=== PATIENT | male | born 1950 | race Caucasian/White ===

== ENCOUNTER 2017-05-27 08:17 | Observation (INO) | payer BC, MEDICARE ==
[2017-05-27] VITALS (21 sets, daily range): BP systolic 105–150; BP diastolic 55–81
[~2017-05-27] VITALS: Ht 182.9 cm; Wt 99.9 kg
[~2017-05-27 08:17] MED LIST: ATOR10TA60 PO; CHOL200074 PO; EZET1TAB41 PO; IBUP-1060 PO; MULT-245 PO; OLME20TA19 PO; OMEG1CAP6 PO; VALS160T3 PO; VENL150C PO; VENL75TA PO
[2017-05-27] MEDS ORDERED: dilTIAZem IV PUSH 25 MG/5 ML VIAL ONE (08:43)
[2017-05-27] MEDS ORDERED: dilTIAZem IV PUSH 25 MG/5 ML VIAL IVP ONE (08:45)
[2017-05-27 08:55] LABS: BASO # 0.1 x10^3/uL (0.0-0.2); BASO % 1 % (0-3); EOS % 2 % (0-3); HEMATOCRIT 42.6 % (39.0-53.0); LYMPH # 2.3 x10^3/uL (1.0-4.8); LYMPH % 47 % (24-48); MEAN CORPUSCULAR HEMOGLOBIN 30 pg (25-35); MEAN CORPUSCULAR HGB CONC 35 g/dL (31-37); MEAN CORPUSCULAR VOLUME 85 fL (79-100); MONO % 11 % (0-9); NEUT % 39 % (31-73); PLATELET COUNT 189 x10^3/uL (140-400); RED BLOOD COUNT 5.04 x10^6/uL (4.30-5.70); RED CELL DISTRIBUTION WIDTH 13.1 % (11.5-14.5)
--- NOTE | 2017-05-27 09:05 | RAD ---
Indication hypertension. Cardiac arrhythmia. A single view of the chest was obtained. No prior imaging is available. Heart size is at the upper limits of normal. There is no congestive heart failure. No focal infiltrate is seen. There is no significant pleural fluid and there is no pneumothorax. Postoperative changes about the left shoulder are noted. IMPRESSION: No acute or focal process is seen in the chest
[2017-05-27 09:11] LABS: CALCIUM 9.1 mg/dL (8.5-10.1); CREATININE 1.3 mg/dL (0.7-1.3); GFR 55.4; POTASSIUM 4.1 mmol/L (3.5-5.1)
[2017-05-27 09:24] LABS: ALBUMIN 4.2 g/dL (3.4-5.0); DIRECT BILIRUBIN 0.1 mg/dL (0.0-0.2); TOTAL BILIRUBIN 0.4 mg/dL (0.2-1.0); TOTAL PROTEIN 8.1 g/dL (6.4-8.2)
--- NOTE | 2017-05-27 09:25 | PHYS DOC ---
Past Medical History Past Medical History: Anxiety, Depression, High Cholesterol, Hypertension Alcohol Use: Heavy Additional Information: beer daily Drug Use: None Adult General Chief Complaint Chief Complaint: RAPID HEART RATE HPI HPI 67-year-old male presenting to the emergency department with high blood pressure and feeling palpitations at home since 7:00 this morning. He has associated lightheadedness and dizziness. He does not have a history of A. fib. He is found to be in atrial fibrillation with a rapid ventricular response here. Location heart. Duration constant. No alleviating or exacerbating factors present. He denies any pain. He denies chest pain abdominal pain. He reports having obstructive sleep apnea and has been using his machine which is nasal CPAP at home. He does report there is an air leak on his CPAP machine at home and he is currently getting investigated. Review of systems is negative for fevers chills cough nausea vomiting diaphoresis chest pain. All other review of systems is negative unless otherwise noted in history of present illness. ED course: 67-year-old male presenting to the emergency department with A. fib with RVR with having symptoms of lightheadedness. The patient was given diltiazem push IV bolus and drip. Labs obtained. Pertinent physical exam findings otherwise soft nontender abdomen. Patient comfortable in the examination room. EKG interpreted by myself shows A. fib with RVR. Chest x-ray obtained as well. Blood work unremarkable. Patient's heart rate improved with IV therapy. The patient was then admitted to our hospital for further evaluation workup and care. Review of Systems Review of Systems SEE ABOVE. Current Medications Current Medications Current Medications Medications (Trade) Dose Ordered Sig/[facility] Start Time Stop Time Status Last Admin Dose Admin Diltiazem HCl (Cardizem) 25 mg STK-MED ONCE 05/27/17 08:43 05/27/17 08:44 DC Diltiazem HCl 125 mg/Dextrose 125 ml @ 10 mls/hr 1X ONCE 05/27/17 08:45 05/27/17 21:14 05/27/17 09:20 10 MLS/HR Morphine Sulfate 2 mg PRN Q2HR PRN 05/27/17 09:45 05/28/17 09:44 UNV Ondansetron HCl (Zofran) 4 mg PRN Q8HRS PRN 05/27/17 09:45 05/28/17 09:44 UNV Allergies Allergies Allergies Coded Allergies Type Severity Reaction Last Updated Verified No Known Drug Allergies 02/02/16 No Physical Exam Physical Exam Constitutional: Well developed, well nourished, no acute distress, non-toxic appearance. [] HENT: Normocephalic, atraumatic, bilateral external ears normal, oropharynx moist, no oral exudates, nose normal. [] Eyes: PERRLA, EOMI, conjunctiva normal, no discharge. [] Neck: Normal range of motion, no tenderness, supple, no stridor. [] Cardiovascular:tachycardic with irregular rhythm Lungs & Thorax: Bilateral breath sounds clear to auscultation [] Abdomen: Bowel sounds normal, soft, no tenderness, no masses, no pulsatile masses. [] Skin: Warm, dry, no erythema, no rash. [] Back: No tenderness, no CVA tenderness. [] Extremities: No tenderness, no cyanosis, no clubbing, ROM intact, no edema. [] Neurologic: Alert and oriented X 3, normal motor function, normal sensory function, no focal deficits noted. [] Psychologic: Affect normal, judgement normal, mood normal. [] Current Patient Data Vital Signs Vital Signs Date Time Temp Pulse Resp B/P (MAP) Pulse Ox O2 Delivery O2 Flow Rate FiO2 05/27/17 08:46 147 135/93 05/27/17 08:29 97.9 18 99 Room Air 97.9 Lab Values Laboratory Tests Test 05/27/17 08:40 White Blood Count 5.0 x10^3/uL (4.0-11.0) Red Blood Count 5.04 x10^6/uL (4.30-5.70) Hemoglobin 15.0 g/dL (13.0-17.5) Hematocrit 42.6 % (39.0-53.0) Mean Corpuscular Volume 85 fL (79-100) Mean Corpuscular Hemoglobin 30 pg (25-35) Mean Corpuscular Hemoglobin Concent 35 g/dL (31-37) Red Cell Distribution Width 13.1 % (11.5-14.5) Platelet Count 189 x10^3/uL (140-400) Neutrophils (%) (Auto) 39 % (31-73) Lymphocytes (%) (Auto) 47 % (24-48) Monocytes (%) (Auto) 11 % (0-9) H Eosinophils (%) (Auto) 2 % (0-3) Basophils (%) (Auto) 1 % (0-3) Neutrophils # (Auto) 1.9 x10^3uL (1.8-7.7) Lymphocytes # (Auto) 2.3 x10^3/uL (1.0-4.8) Monocytes # (Auto) 0.5 x10^3/uL (0.0-1.1) Eosinophils # (Auto) 0.1 x10^3/uL (0.0-0.7) Basophils # (Auto) 0.1 x10^3/uL (0.0-0.2) Sodium Level 141 mmol/L (136-145) Potassium Level 4.1 mmol/L (3.5-5.1) Chloride Level 104 mmol/L (98-107) Carbon Dioxide Level 30 mmol/L (21-32) Anion Gap 7 (6-14) Blood Urea Nitrogen 17 mg/dL (8-26) Creatinine 1.3 mg/dL (0.7-1.3) Estimated GFR (Cockcroft-Gault) 55.4 Glucose Level 110 mg/dL (70-99) H Calcium Level 9.1 mg/dL (8.5-10.1) Total Bilirubin 0.4 mg/dL (0.2-1.0) Direct Bilirubin 0.1 mg/dL (0.0-0.2) Aspartate Amino Transferase (AST) 25 U/L (15-37) Alanine Aminotransferase (ALT) 33 U/L (16-63) Alkaline Phosphatase 87 U/L (46-116) Troponin I Quantitative < 0.017 ng/mL (0.000-0.055) AA-Ien-C-Type Natriuretic Peptide 13 pg/mL (0-124) Total Protein 8.1 g/dL (6.4-8.2) Albumin 4.2 g/dL (3.4-5.0) Lipase 146 U/L (73-393) Laboratory Tests 05/27/17 08:40 Laboratory Tests 05/27/17 08:40 EKG EKG [] Radiology/Procedures Radiology/Procedures [] Course & Med Decision Making Course & Med Decision Making Pertinent Labs and Imaging studies reviewed. (See chart for details) [] Dragon Disclaimer Dragon Disclaimer This electronic medical record was generated, in whole or in part, using a voice recognition dictation system. Departure Departure Impression: Primary Impression: Atrial fibrillation with RVR Additional Impression: History of hypertension Disposition: ADMITTED INPATIENT Admitting Physician: Briseyda More Condition: STABLE Referrals: VENECIA WILKINSON (PCP) Critical Care Time Critical care time was [42] minutes exclusive of procedures. Time was spent evaluating the patient, ordering the administration of IV heart rate controlling medications, discussing with admitting provider, and documenting. Problem Qualifiers JACLYN DOLL MD May 27, 2017 09:25
[2017-05-27] MEDS ORDERED: IV NORMAL SALINE 1000ML BAG 1,000 ML IV SCH (09:35)
[2017-05-27] MEDS ORDERED: ONDANSETRON PF 4 MG/2 ML VIAL. IV PRN ×2 (09:45→14:00)
[2017-05-27] MEDS ORDERED: MORPHINE SULFATE 2 MG/ML DISP.SYRIN. IV PRN ×2 (09:45→14:00)
--- NOTE | 2017-05-27 10:22 | EKG ---
[facility] [address] [place] [address] Test Date: 2017-05-27 Test Time: 08:29:17 Pat Name: DEE DEE REINOSO Department: Room: Gender: M [employer]: : 1950 Requested By: JACLYN DOLL Order Number: [id number] Reading MD: Measurements Intervals [place] Rate: 146 P: CO: QRS: 32 QRSD: 78 T: -20 QT: 328 QTc: 513 Interpretive Statements IRREGULAR RHYTHM, NO P-WAVE FOUND ST & T ABNORMALITY, CONSIDER INFERIOR ISCHEMIA OR LEFT VENTRICULAR STRAIN ABNORMAL ECG RI6.01 No previous ECG available for comparison
--- NOTE | 2017-05-27 10:53 | ACF ---
Admission Forms Criteria I am unable to edit this form. This patient was placed as observation status. This is the only avenue in our electronic medical record for me to document this. All of the above information is not my professional medical opinion. Admission Criteria Met?: Pending MERCEDEZ DOMINGUEZ May 27, 2017 10:53 JACLYN DOLL MD Jun 03, 2017 03:51
--- NOTE | 2017-05-27 11:35 | PDOC2 ---
CARDIOLOGY CONSULT NOTE CHEIF COMPLAINT: Palpitations. Problems: HPI: Pleasant 67 y.o man presenting with palpitations, anxiety and dyspnea. Was in his usual state of health until yesterday, had palpitations today. Presented to ER in afib with RVR. Denies any baseline chest pain. He is able to mow his yard and do exertional activities without limitations. Recalls one episode of palpitaitons for a few min last week. No syncope. PMHX: HTN Dyslipidemia anxiety SOCHX: No illicit drugs, daily alcohol (2-3 beers). No smoking. FAMHX: NC CURRENT MEDS: Current Medications Medications (Trade) Dose Ordered Sig/Jeannette Start Time Stop Time Status Last Admin Dose Admin Diltiazem HCl (Cardizem) 25 mg STK-MED ONCE 05/27/17 08:43 05/27/17 08:44 DC Diltiazem HCl 125 mg/Dextrose 125 ml @ 10 mls/hr 1X ONCE 05/27/17 08:45 05/27/17 21:14 05/27/17 09:20 10 MLS/HR Morphine Sulfate 2 mg PRN Q2HR PRN 05/27/17 09:45 05/28/17 09:44 Ondansetron HCl (Zofran) 4 mg PRN Q8HRS PRN 05/27/17 09:45 05/28/17 09:44 Sodium Chloride 1,000 ml @ 100 mls/hr Q10H 05/27/17 09:35 05/28/17 09:34 ALLERGIES: Allergies Coded Allergies Type Severity Reaction Last Updated Verified No Known Drug Allergies 02/02/16 No ROS: Negative for 09/06 systems reviewed unless otherwise noted above in HPI. PHYSICAL EXAM: Vital Signs: Vital Signs Date Time Temp Pulse Resp B/P (MAP) Pulse Ox O2 Delivery O2 Flow Rate FiO2 05/27/17 10:29 122 20 127/83 (98) 97 Room Air 05/27/17 08:29 97.9 97.9 Physical Exam: Gen: AO x 3. NAD CVS: Irr irr. No m/r/g. PULM: cTAB ABD: Soft, NT/ND +BS EXT: No edema. 2+ radial/pedal pulses. NEURO:Non focal PSYCH: Mood/affect wnl. DIAGNOSTIC TESTING: EKG: afib with RVR. Lab cbc, bmp wnl. ASSESSMENT: 1. New onset afib with RVR 2. HTN 3. LUCILLE 4. DLP PLAN: 1. Continue current dilt gtt. Will likely convert to oral in am. 2. Digoxin 0.5mg IV now and then 0.25mg q 6 hrs x 2 doses. 3. Eliquis 5mg p.o bid to start now. 4. Plan for ALMA DELIA CVN tomorrow. Discussed pathophysiology, risks, benefits and alternatives to above plan. Patient and in agreement to proceed. Thanks for consult. Will follow along. ROMEO ROSALES MD May 27, 2017 11:35
[2017-05-27] MEDS: APIXABAN 5 MG TABLET. PO SCH ×2 (12:46→21:41)
[2017-05-27] MEDS ORDERED: VENL75CA6 PO (12:54)
[2017-05-27] MEDS ORDERED: CHOL10003 PO (12:56)
[2017-05-27] MEDS ORDERED: OMEG1CAP6 PO (12:57)
[2017-05-27] MEDS ORDERED: DIGOXIN IV 500 MCG/2 ML AMPUL. IV ONE ×2 (13:00→19:00)
[2017-05-27] MEDS ORDERED: traMADol 50 MG TABLET PO PRN (14:00)
[2017-05-27] MEDS ORDERED: DOCUSATE SODIUM 100 MG CAPSULE. PO PRN (14:00)
[2017-05-27] MEDS ORDERED: ACETAMINOPHEN 325 MG TABLET. PO PRN (14:00)
[2017-05-27] MEDS ORDERED: hydrALAZINE 20 MG/ML VIAL. IVP PRN (14:00)
--- NOTE | 2017-05-27 14:06 | PDOC1 ---
History and Physical Date of Admission Date of Admission 05/27/17 Identification/Chief Complaint Chief Complaint palpitation Problems: Source Source: Chart review, Patient History of Present Illness History of Present Illness HPI HPI 67-year-old male presenting to the emergency department with high blood pressure and feeling palpitations at home since 7:00 this morning. pT SAID HE HAD similar episode 1 week ago. He felt irregular heart beat today, palpitation, with some lightheadedness. denies cough, sob, chest pain, abd pain, fever, chills. HE LIKEs coffee and 2 cups daily. He also drinks about 1 L beers almost daily. in ER HR 140s, on cardizem drip now, still HR 110-140s. He reports having obstructive sleep apnea and has been using his machine which is nasal CPAP at home. He does report there is an air leak on his CPAP machine at home and he is currently getting investigated. Past Medical History Cardiovascular: HTN Psych: Depression Past Surgical History Past Surgical History: Tonsillectomy Family History Family History: Cancer, Hypertension Social History Smoke: No ALCOHOL: heavy Drugs: None Current Problem List Problem List Problems Medical Problems: (1) Atrial fibrillation with RVR Status: Acute (2) History of hypertension Status: Acute Current Medications Current Medications Current Medications Medications (Trade) Dose Ordered Sig/Jeannette Start Time Stop Time Status Last Admin Dose Admin Apixaban (Eliquis) 5 mg BID 05/27/17 13:00 05/27/17 12:46 5 MG Digoxin (Lanoxin) 250 mcg 1X ONCE 05/27/17 19:00 05/27/17 19:01 Diltiazem HCl (Cardizem) 25 mg STK-MED ONCE 05/27/17 08:43 05/27/17 08:44 DC Diltiazem HCl 125 mg/Dextrose 125 ml @ 10 mls/hr 1X ONCE 05/27/17 08:45 05/27/17 21:14 05/27/17 09:20 10 MLS/HR Morphine Sulfate 2 mg PRN Q2HR PRN 05/27/17 09:45 05/28/17 09:44 Ondansetron HCl (Zofran) 4 mg PRN Q8HRS PRN 05/27/17 09:45 05/28/17 09:44 Sodium Chloride 1,000 ml @ 100 mls/hr Q10H 05/27/17 09:35 05/27/17 12:22 DC Allergies Allergies Allergies Coded Allergies Type Severity Reaction Last Updated Verified fentanyl Allergy Severe 05/27/17 Yes ROS Review of System CONSTITUTIONAL: No fever or chills EYES: No recent changes SKIN: No rash or itching CARDIOVASCULAR: No chest pain, syncope, palpitations, or edema RESPIRATORY: No SOB or cough GASTROINTESTINAL: No nausea, vomiting or abdominal pain NEUROLOGICAL: No headaches or weakness ENDOCRINE: No cold or heat intolerance GENITOURINARY: No urgency or frequency of urination MUSCULOSKELETAL: No back pain or joint pain LYMPHATICS: No enlarged lymph nodes PSYCHIATRIC: No anxiety or depression Physical Exam Physical Exam GEN.: No apparent distress. Alert and oriented. HEENT: Head is normocephalic, atraumatic NECK: Supple. LUNGS: Clear to auscultation. HEART: S1, S2 present. Peripheral pulses intact , irregular, tachycardia ABDOMEN: Soft, nontender. Positive bowel sounds. EXTREMITIES: Without any cyanosis. NEUROLOGIC: Normal speech, normal tone PSYCHIATRIC: Normal affect, normal mood. SKIN: No ulcerations Vitals Vitals Vital Signs Date Time Temp Pulse Resp B/P (MAP) Pulse Ox O2 Delivery O2 Flow Rate FiO2 05/27/17 13:16 98.1 87 18 130/71 (90) 95 Room Air 98.1 Labs Labs Laboratory Tests Test 05/27/17 08:40 White Blood Count 5.0 x10^3/uL (4.0-11.0) Red Blood Count 5.04 x10^6/uL (4.30-5.70) Hemoglobin 15.0 g/dL (13.0-17.5) Hematocrit 42.6 % (39.0-53.0) Mean Corpuscular Volume 85 fL (79-100) Mean Corpuscular Hemoglobin 30 pg (25-35) Mean Corpuscular Hemoglobin Concent 35 g/dL (31-37) Red Cell Distribution Width 13.1 % (11.5-14.5) Platelet Count 189 x10^3/uL (140-400) Neutrophils (%) (Auto) 39 % (31-73) Lymphocytes (%) (Auto) 47 % (24-48) Monocytes (%) (Auto) 11 % (0-9) Eosinophils (%) (Auto) 2 % (0-3) Basophils (%) (Auto) 1 % (0-3) Neutrophils # (Auto) 1.9 x10^3uL (1.8-7.7) Lymphocytes # (Auto) 2.3 x10^3/uL (1.0-4.8) Monocytes # (Auto) 0.5 x10^3/uL (0.0-1.1) Eosinophils # (Auto) 0.1 x10^3/uL (0.0-0.7) Basophils # (Auto) 0.1 x10^3/uL (0.0-0.2) Sodium Level 141 mmol/L (136-145) Potassium Level 4.1 mmol/L (3.5-5.1) Chloride Level 104 mmol/L (98-107) Carbon Dioxide Level 30 mmol/L (21-32) Anion Gap 7 (6-14) Blood Urea Nitrogen 17 mg/dL (8-26) Creatinine 1.3 mg/dL (0.7-1.3) Estimated GFR (Cockcroft-Gault) 55.4 Glucose Level 110 mg/dL (70-99) Calcium Level 9.1 mg/dL (8.5-10.1) Total Bilirubin 0.4 mg/dL (0.2-1.0) Direct Bilirubin 0.1 mg/dL (0.0-0.2) Aspartate Amino Transf (AST/SGOT) 25 U/L (15-37) Alanine Aminotransferase (ALT/SGPT) 33 U/L (16-63) Alkaline Phosphatase 87 U/L (46-116) Troponin I Quantitative < 0.017 ng/mL (0.000-0.055) IF-Dap-I-Type Natriuretic Peptide 13 pg/mL (0-124) Total Protein 8.1 g/dL (6.4-8.2) Albumin 4.2 g/dL (3.4-5.0) Lipase 146 U/L (73-393) Laboratory Tests Test 05/27/17 08:40 White Blood Count 5.0 x10^3/uL (4.0-11.0) Red Blood Count 5.04 x10^6/uL (4.30-5.70) Hemoglobin 15.0 g/dL (13.0-17.5) Hematocrit 42.6 % (39.0-53.0) Mean Corpuscular Volume 85 fL (79-100) Mean Corpuscular Hemoglobin 30 pg (25-35) Mean Corpuscular Hemoglobin Concent 35 g/dL (31-37) Red Cell Distribution Width 13.1 % (11.5-14.5) Platelet Count 189 x10^3/uL (140-400) Neutrophils (%) (Auto) 39 % (31-73) Lymphocytes (%) (Auto) 47 % (24-48) Monocytes (%) (Auto) 11 % (0-9) Eosinophils (%) (Auto) 2 % (0-3) Basophils (%) (Auto) 1 % (0-3) Neutrophils # (Auto) 1.9 x10^3uL (1.8-7.7) Lymphocytes # (Auto) 2.3 x10^3/uL (1.0-4.8) Monocytes # (Auto) 0.5 x10^3/uL (0.0-1.1) Eosinophils # (Auto) 0.1 x10^3/uL (0.0-0.7) Basophils # (Auto) 0.1 x10^3/uL (0.0-0.2) Sodium Level 141 mmol/L (136-145) Potassium Level 4.1 mmol/L (3.5-5.1) Chloride Level 104 mmol/L (98-107) Carbon Dioxide Level 30 mmol/L (21-32) Anion Gap 7 (6-14) Blood Urea Nitrogen 17 mg/dL (8-26) Creatinine 1.3 mg/dL (0.7-1.3) Estimated GFR (Cockcroft-Gault) 55.4 Glucose Level 110 mg/dL (70-99) Calcium Level 9.1 mg/dL (8.5-10.1) Total Bilirubin 0.4 mg/dL (0.2-1.0) Direct Bilirubin 0.1 mg/dL (0.0-0.2) Aspartate Amino Transf (AST/SGOT) 25 U/L (15-37) Alanine Aminotransferase (ALT/SGPT) 33 U/L (16-63) Alkaline Phosphatase 87 U/L (46-116) Troponin I Quantitative < 0.017 ng/mL (0.000-0.055) SZ-Hqz-S-Type Natriuretic Peptide 13 pg/mL (0-124) Total Protein 8.1 g/dL (6.4-8.2) Albumin 4.2 g/dL (3.4-5.0) Lipase 146 U/L (73-393) VTE Prophylaxis Ordered VTE Prophylaxis Devices: Yes VTE Pharmacological Prophylaxi: No Assessment/Plan Assessment/Plan new onset rapid AFIB htn hld anxiety depression alcoholism plan: fu with card,EP study? on cardizem drip, dig x1, then q6h x2 check lipid panel, tsh cont home meds start eliquis as per card ativan prn check urine tox admit >2 nights TAMARA WHITEHEAD MD May 27, 2017 14:06
[2017-05-27] MEDS: VENLAFAXINE XR 37.5 MG CAP.ER.24H. PO SCH (14:27)
[2017-05-27] MEDS: LOSARTAN POTASSIUM 50 MG TABLET. PO SCH (14:27)
[2017-05-27] MEDS: CHOLECALCIFEROL (VITAMIN D3) 1,000 UNIT TABLET PO SCH (14:27)
[2017-05-27 16:40] LABS: BARBITURATES NEG (NEG); BENZODIAZEPINES NEG (NEG); CANNABINOIDS NEG (NEG); COCAINE NEG (NEG); METHADONE NEG (NEG); OPIATES NEG (NEG); PHENCYCLIDINE NEG (NEG)
[2017-05-27] MEDS ORDERED: ATORVASTATIN CALCIUM 10 MG TABLET. PO SCH (21:00)
[2017-05-28] VITALS (9 sets, daily range): BP systolic 85–127; BP diastolic 48–83
[2017-05-28 06:01] LABS: BASO # 0.1 x10^3/uL (0.0-0.2); BASO % 1 % (0-3); EOS % 2 % (0-3); HEMATOCRIT 41.8 % (39.0-53.0); HEMOGLOBIN 14.3 g/dL (13.0-17.5); LYMPH # 2.7 x10^3/uL (1.0-4.8); LYMPH % 33 % (24-48); MEAN CORPUSCULAR HEMOGLOBIN 30 pg (25-35); MEAN CORPUSCULAR HGB CONC 34 g/dL (31-37); MEAN CORPUSCULAR VOLUME 87 fL (79-100); MONO % 10 % (0-9); NEUT % 55 % (31-73); PLATELET COUNT 186 x10^3/uL (140-400); RED BLOOD COUNT 4.81 x10^6/uL (4.30-5.70); RED CELL DISTRIBUTION WIDTH 13.1 % (11.5-14.5); WHITE BLOOD COUNT 8.1 x10^3/uL (4.0-11.0)
[2017-05-28 06:26] LABS: CALCIUM 8.9 mg/dL (8.5-10.1); CREATININE 1.4 mg/dL (0.7-1.3); GFR 50.9; POTASSIUM 4.2 mmol/L (3.5-5.1)
[2017-05-28 06:27] LABS: CHOLESTEROL/HDL RATIO 4.8
--- NOTE | 2017-05-28 09:18 | PDOC3 ---
Discharge Summary Visit Information Date of Admission: May 27, 2017 Date of Discharge: May 28, 2017 Final Diagnosis Problems Medical Problems: (1) Atrial fibrillation with RVR Status: Acute (2) History of hypertension Status: Acute Brief Hospital Course Allergies Allergies Coded Allergies Type Severity Reaction Last Updated Verified fentanyl Allergy Severe 05/27/17 Yes Vital Signs Vital Signs Date Time Temp Pulse Resp B/P (MAP) Pulse Ox O2 Delivery O2 Flow Rate FiO2 05/28/17 08:00 58 116/73 (87) 05/28/17 07:00 97.6 20 97 Room Air 97.6 Lab Results Laboratory Tests Test 05/27/17 08:40 05/27/17 15:35 05/27/17 16:00 05/27/17 21:20 White Blood Count 5.0 x10^3/uL (4.0-11.0) Red Blood Count 5.04 x10^6/uL (4.30-5.70) Hemoglobin 15.0 g/dL (13.0-17.5) Hematocrit 42.6 % (39.0-53.0) Mean Corpuscular Volume 85 fL (79-100) Mean Corpuscular Hemoglobin 30 pg (25-35) Mean Corpuscular Hemoglobin Concent 35 g/dL (31-37) Red Cell Distribution Width 13.1 % (11.5-14.5) Platelet Count 189 x10^3/uL (140-400) Neutrophils (%) (Auto) 39 % (31-73) Lymphocytes (%) (Auto) 47 % (24-48) Monocytes (%) (Auto) 11 % (0-9) Eosinophils (%) (Auto) 2 % (0-3) Basophils (%) (Auto) 1 % (0-3) Neutrophils # (Auto) 1.9 x10^3uL (1.8-7.7) Lymphocytes # (Auto) 2.3 x10^3/uL (1.0-4.8) Monocytes # (Auto) 0.5 x10^3/uL (0.0-1.1) Eosinophils # (Auto) 0.1 x10^3/uL (0.0-0.7) Basophils # (Auto) 0.1 x10^3/uL (0.0-0.2) Sodium Level 141 mmol/L (136-145) Potassium Level 4.1 mmol/L (3.5-5.1) Chloride Level 104 mmol/L (98-107) Carbon Dioxide Level 30 mmol/L (21-32) Anion Gap 7 (6-14) Blood Urea Nitrogen 17 mg/dL (8-26) Creatinine 1.3 mg/dL (0.7-1.3) Estimated GFR (Cockcroft-Gault) 55.4 Glucose Level 110 mg/dL (70-99) Calcium Level 9.1 mg/dL (8.5-10.1) Total Bilirubin 0.4 mg/dL (0.2-1.0) Direct Bilirubin 0.1 mg/dL (0.0-0.2) Aspartate Amino Transf (AST/SGOT) 25 U/L (15-37) Alanine Aminotransferase (ALT/SGPT) 33 U/L (16-63) Alkaline Phosphatase 87 U/L (46-116) Troponin I Quantitative < 0.017 ng/mL (0.000-0.055) < 0.017 ng/mL (0.000-0.055) < 0.017 ng/mL (0.000-0.055) FO-Vtl-D-Type Natriuretic Peptide 13 pg/mL (0-124) Total Protein 8.1 g/dL (6.4-8.2) Albumin 4.2 g/dL (3.4-5.0) Lipase 146 U/L (73-393) Urine Opiates Screen Neg (NEG) Urine Methadone Screen Neg (NEG) Urine Barbiturates Neg (NEG) Urine Phencyclidine Screen Neg (NEG) Urine Amphetamine/Methamphetamine Neg (NEG) Urine Benzodiazepines Screen Neg (NEG) Urine Cocaine Screen Neg (NEG) Urine Cannabinoids Screen Neg (NEG) Urine Ethyl Alcohol Neg (NEG) Test 05/28/17 05:15 White Blood Count 8.1 x10^3/uL (4.0-11.0) Red Blood Count 4.81 x10^6/uL (4.30-5.70) Hemoglobin 14.3 g/dL (13.0-17.5) Hematocrit 41.8 % (39.0-53.0) Mean Corpuscular Volume 87 fL (79-100) Mean Corpuscular Hemoglobin 30 pg (25-35) Mean Corpuscular Hemoglobin Concent 34 g/dL (31-37) Red Cell Distribution Width 13.1 % (11.5-14.5) Platelet Count 186 x10^3/uL (140-400) Neutrophils (%) (Auto) 55 % (31-73) Lymphocytes (%) (Auto) 33 % (24-48) Monocytes (%) (Auto) 10 % (0-9) Eosinophils (%) (Auto) 2 % (0-3) Basophils (%) (Auto) 1 % (0-3) Neutrophils # (Auto) 4.4 x10^3uL (1.8-7.7) Lymphocytes # (Auto) 2.7 x10^3/uL (1.0-4.8) Monocytes # (Auto) 0.8 x10^3/uL (0.0-1.1) Eosinophils # (Auto) 0.2 x10^3/uL (0.0-0.7) Basophils # (Auto) 0.1 x10^3/uL (0.0-0.2) Sodium Level 140 mmol/L (136-145) Potassium Level 4.2 mmol/L (3.5-5.1) Chloride Level 105 mmol/L (98-107) Carbon Dioxide Level 28 mmol/L (21-32) Anion Gap 7 (6-14) Blood Urea Nitrogen 20 mg/dL (8-26) Creatinine 1.4 mg/dL (0.7-1.3) Estimated GFR (Cockcroft-Gault) 50.9 Glucose Level 117 mg/dL (70-99) Calcium Level 8.9 mg/dL (8.5-10.1) Triglycerides Level 241 mg/dL (0-150) Cholesterol Level 190 mg/dL (0-200) LDL Cholesterol, Calculated 102 mg/dL (0-100) VLDL Cholesterol, Calculated 48 mg/dL (0-40) Non-HDL Cholesterol Calculated 150 mg/dL (0-129) HDL Cholesterol 40 mg/dL (40-60) Cholesterol/HDL Ratio 4.8 Thyroid Stimulating Hormone (TSH) 3.123 uIU/mL (0.358-3.74) Laboratory Tests Test 05/27/17 15:35 05/27/17 16:00 05/27/17 21:20 05/28/17 05:15 Troponin I Quantitative < 0.017 ng/mL (0.000-0.055) < 0.017 ng/mL (0.000-0.055) Urine Opiates Screen Neg (NEG) Urine Methadone Screen Neg (NEG) Urine Barbiturates Neg (NEG) Urine Phencyclidine Screen Neg (NEG) Urine Amphetamine/Methamphetamine Neg (NEG) Urine Benzodiazepines Screen Neg (NEG) Urine Cocaine Screen Neg (NEG) Urine Cannabinoids Screen Neg (NEG) Urine Ethyl Alcohol Neg (NEG) White Blood Count 8.1 x10^3/uL (4.0-11.0) Red Blood Count 4.81 x10^6/uL (4.30-5.70) Hemoglobin 14.3 g/dL (13.0-17.5) Hematocrit 41.8 % (39.0-53.0) Mean Corpuscular Volume 87 fL (79-100) Mean Corpuscular Hemoglobin 30 pg (25-35) Mean Corpuscular Hemoglobin Concent 34 g/dL (31-37) Red Cell Distribution Width 13.1 % (11.5-14.5) Platelet Count 186 x10^3/uL (140-400) Neutrophils (%) (Auto) 55 % (31-73) Lymphocytes (%) (Auto) 33 % (24-48) Monocytes (%) (Auto) 10 % (0-9) Eosinophils (%) (Auto) 2 % (0-3) Basophils (%) (Auto) 1 % (0-3) Neutrophils # (Auto) 4.4 x10^3uL (1.8-7.7) Lymphocytes # (Auto) 2.7 x10^3/uL (1.0-4.8) Monocytes # (Auto) 0.8 x10^3/uL (0.0-1.1) Eosinophils # (Auto) 0.2 x10^3/uL (0.0-0.7) Basophils # (Auto) 0.1 x10^3/uL (0.0-0.2) Sodium Level 140 mmol/L (136-145) Potassium Level 4.2 mmol/L (3.5-5.1) Chloride Level 105 mmol/L (98-107) Carbon Dioxide Level 28 mmol/L (21-32) Anion Gap 7 (6-14) Blood Urea Nitrogen 20 mg/dL (8-26) Creatinine 1.4 mg/dL (0.7-1.3) Estimated GFR (Cockcroft-Gault) 50.9 Glucose Level 117 mg/dL (70-99) Calcium Level 8.9 mg/dL (8.5-10.1) Triglycerides Level 241 mg/dL (0-150) Cholesterol Level 190 mg/dL (0-200) LDL Cholesterol, Calculated 102 mg/dL (0-100) VLDL Cholesterol, Calculated 48 mg/dL (0-40) Non-HDL Cholesterol Calculated 150 mg/dL (0-129) HDL Cholesterol 40 mg/dL (40-60) Cholesterol/HDL Ratio 4.8 Thyroid Stimulating Hormone (TSH) 3.123 uIU/mL (0.358-3.74) Brief Hospital Course Mr. Scott is a 67 old [sex] who presented with [ ]67-year-old male presenting to the emergency department with high blood pressure and feeling palpitations at home since 7:00 this morning. pT SAID HE HAD similar episode 1 week ago. He felt irregular heart beat today, palpitation, with some lightheadedness. denies cough, sob, chest pain, abd pain, fever, chills. HE LIKEs coffee and 2 cups daily. He also drinks about 1 L beers almost daily. in ER HR 140s, on cardizem drip now, still HR 110-140s. He reports having obstructive sleep apnea and has been using his machine which is nasal CPAP at home. He does report there is an air leak on his CPAP machine at home and he is currently getting investigated. COURSE: Started on cardizem gtt, converted to NSR overnight, Was initially planned for ALMA DELIA and cardioversion if remained atrial fib, First episode, Awaiting cardiac rounds for PO cardizem/rate controlling agent, LIkely home later, Dw pt and Pt seen and examined Discharge Information Condition at Discharge: Improved, Stable Disposition/Orders: D/C to Home Scheduled Atorvastatin Calcium (Atorvastatin Calcium), 10 MG PO HS, (Reported) Cholecalciferol (Vitamin D3) (Vitamin D3), 1 TAB PO DAILY, (Reported) Multivitamin (Multi Vitamin Daily), 1 EACH PO DAILY, (Reported) Valsartan (Diovan), 160 MG PO DAILY, (Reported) Venlafaxine Hcl (Venlafaxine Hcl Er), 1 CAP PO DAILY, (Reported) Miscellaneous Medications [place]-3 Fatty Acids/Fish Oil (Fish Oil 1,000 Mg Capsule), 4 EACH PO, (Reported) MAURILIO GRACIA MD May 28, 2017 09:18
--- NOTE | 2017-05-28 09:28 | PDOC ---
CARDIO Progress Notes Date and Time Date of Service 05/28/17 Time of Evaluation 0915 Subjective Subjective: No Chest Pain, No shortness of breath, No Palpitations, No Dizziness Vitals Vitals Vital Signs Date Time Temp Pulse Resp B/P (MAP) Pulse Ox O2 Delivery O2 Flow Rate FiO2 05/28/17 08:00 58 116/73 (87) 05/28/17 07:00 97.6 20 97 Room Air 97.6 Weight Weight [ ] Input and Output Intake and Output Intake and Output 05/28/17 07:00 Intake Total 800 ml Balance 800 ml Intake Oral 800 ml # Voids 6 Laboratory Labs Laboratory Tests Test 05/27/17 15:35 05/27/17 16:00 05/27/17 21:20 05/28/17 05:15 Troponin I Quantitative < 0.017 ng/mL (0.000-0.055) < 0.017 ng/mL (0.000-0.055) Urine Opiates Screen Neg (NEG) Urine Methadone Screen Neg (NEG) Urine Barbiturates Neg (NEG) Urine Phencyclidine Screen Neg (NEG) Urine Amphetamine/Methamphetamine Neg (NEG) Urine Benzodiazepines Screen Neg (NEG) Urine Cocaine Screen Neg (NEG) Urine Cannabinoids Screen Neg (NEG) Urine Ethyl Alcohol Neg (NEG) White Blood Count 8.1 x10^3/uL (4.0-11.0) Red Blood Count 4.81 x10^6/uL (4.30-5.70) Hemoglobin 14.3 g/dL (13.0-17.5) Hematocrit 41.8 % (39.0-53.0) Mean Corpuscular Volume 87 fL (79-100) Mean Corpuscular Hemoglobin 30 pg (25-35) Mean Corpuscular Hemoglobin Concent 34 g/dL (31-37) Red Cell Distribution Width 13.1 % (11.5-14.5) Platelet Count 186 x10^3/uL (140-400) Neutrophils (%) (Auto) 55 % (31-73) Lymphocytes (%) (Auto) 33 % (24-48) Monocytes (%) (Auto) 10 % (0-9) Eosinophils (%) (Auto) 2 % (0-3) Basophils (%) (Auto) 1 % (0-3) Neutrophils # (Auto) 4.4 x10^3uL (1.8-7.7) Lymphocytes # (Auto) 2.7 x10^3/uL (1.0-4.8) Monocytes # (Auto) 0.8 x10^3/uL (0.0-1.1) Eosinophils # (Auto) 0.2 x10^3/uL (0.0-0.7) Basophils # (Auto) 0.1 x10^3/uL (0.0-0.2) Sodium Level 140 mmol/L (136-145) Potassium Level 4.2 mmol/L (3.5-5.1) Chloride Level 105 mmol/L (98-107) Carbon Dioxide Level 28 mmol/L (21-32) Anion Gap 7 (6-14) Blood Urea Nitrogen 20 mg/dL (8-26) Creatinine 1.4 mg/dL (0.7-1.3) Estimated GFR (Cockcroft-Gault) 50.9 Glucose Level 117 mg/dL (70-99) Calcium Level 8.9 mg/dL (8.5-10.1) Triglycerides Level 241 mg/dL (0-150) Cholesterol Level 190 mg/dL (0-200) LDL Cholesterol, Calculated 102 mg/dL (0-100) VLDL Cholesterol, Calculated 48 mg/dL (0-40) Non-HDL Cholesterol Calculated 150 mg/dL (0-129) HDL Cholesterol 40 mg/dL (40-60) Cholesterol/HDL Ratio 4.8 Thyroid Stimulating Hormone (TSH) 3.123 uIU/mL (0.358-3.74) Physical Exam HEENT: Neck Supple W Full Motion Chest: Symmetric LUNGS: Clear to Auscultation Heart: S1S2, RRR Abdomen: Soft N/T Extremities: 2+ Dorsalis Pedis, No Edema Neurology: alert, oriented, follow commands Assessment Assessment 1. New onset AFIB with RVR; converted to SR overnight 2. HTN 3. DLP Recommendations Eliquis for stroked prophylaxis Check echo to assess LV function Convert Cardizem to oral If echo WNL, may discharge from a CV standpoint and f/u in our office in 4-[address] Reinoso. TOMASA BARNES APRN May 28, 2017 09:28
[2017-05-28] MEDS: APIXABAN 5 MG TABLET. PO SCH (12:23)
[2017-05-28] MEDS: VENLAFAXINE XR 37.5 MG CAP.ER.24H. PO SCH (12:23)
[2017-05-28] MEDS: LOSARTAN POTASSIUM 50 MG TABLET. PO SCH (12:23)
[2017-05-28] MEDS: CHOLECALCIFEROL (VITAMIN D3) 1,000 UNIT TABLET PO SCH (12:24)
--- NOTE | 2017-05-28 13:52 | CARD ---
APPROVED REPORT EXAM: Two-dimensional and M-mode echocardiogram with Doppler and color Doppler. Other Information Quality : GoodHR: 61bpm Rhythm : NSR INDICATION Atrial Fibrillation RVR 2D DIMENSIONS RVDd3.4 (2.9-3.5cm)Left Atrium(2D)4.4 (1.6-4.0cm) IVSd1.2 (0.7-1.1cm)LVDd5.2 (3.9-5.9cm) LVOT Diameter2.4 (1.8-2.4cm)PWd1.2 (0.7-1.1cm) LVDs2.9 (2.5-4.0cm)FS (%) 44.3 % SV96.5 ml Aortic Valve AoV Peak Jerome.216.3cm/sAoV VTI40.4cm AO Peak GR.18.7mmHgLVOT Peak Jerome.173.6cm/s LVOT VTI 33.32cmAO Mean GR.9mmHg DAVE (VMAX)2.53yo8YLN (VTI)3.60cm2 Mitral Valve MV E Ttmvagru47.2cm/sMV E Peak Gr.5mmHg MV DECEL [id number] A Sfsgpeja479.1cm/s MV FWT74kiS/A Ratio0.7 MV A Hmojnokz986lmWSE (PHT)2.65cm2 TDI E/Lateral E'6.3E/Medial E'10.0 Pulmonary Valve PV Peak Domxqapn044.4cm/sPV Peak Grad.5mmHg Tricuspid Valve TR P. Gukhpjuc844gn/sTR Peak Gr.24mmHg Pulmonary Vein PVa tzmiyuhw86yhsa LEFT VENTRICLE The left ventricle is normal size. There is mild concentric left ventricular hypertrophy. The left ve ntricular systolic function is normal and the ejection fraction is within normal range. The Ejection Fraction is 60-65%. There is normal LV segmental wall motion. Transmitral Doppler flow pattern is Gra de I-abnormal relaxation pattern. RIGHT VENTRICLE The right ventricle is normal size. There is normal right ventricular wall thickness. The right ventr icular systolic function is normal. ATRIA The left atrium size is normal. The right atrium size is normal. The interatrial septum is intact wit h no evidence for an atrial septal defect or patent foramen ovale as noted on 2-D or Doppler imaging. AORTIC VALVE The aortic valve is mildly sclerotic. The aortic valve is trileaflet. Doppler and Color Flow revealed no significant aortic regurgitation. There is no significant aortic valvular stenosis. MITRAL VALVE The mitral valve leaflets are mildly thickened. There is no evidence of mitral valve prolapse. There is no mitral valve stenosis. Doppler and Color Flow revealed trace mitral regurgitation. TRICUSPID VALVE Doppler and Color Flow revealed mild tricuspid regurgitation. The pulmonary artery systolic pressure is estimated at 27 mmHg. PULMONIC VALVE The pulmonary valve is not well visualized but appears to opens well. Doppler and Color Flow revealed no pulmonic valvular regurgitation. There is no pulmonic valvular stenosis by spectral Doppler. GREAT VESSELS The aortic root is mildly enlarged. The ascending aorta is mildly dilated. The pulmonary artery is no rmal. The IVC is normal in size and collapses >50% with inspiration. PERICARDIAL EFFUSION There is no evidence of significant pericardial effusion. Critical Notification Critical Value: No <Conclusion> The left ventricle is normal size. The left ventricular systolic function is normal and the ejection fraction is within normal range. The Ejection Fraction is 60-65%. There is mild concentric left ventricular hypertrophy. There is no significant aortic valvular stenosis. Doppler and Color Flow revealed no significant aortic regurgitation. Doppler and Color Flow revealed trace mitral regurgitation. Doppler and Color Flow revealed mild tricuspid regurgitation. The pulmonary artery systolic pressure is estimated at 27 mmHg.
== END 2017-05-28 15:45 | disposition home or self-care (01) ==
LOC: ER 08:17 → 2 SOUTH 09:32
PROVIDERS: ADMIT Internal Medicine; ATTEND Internal Medicine
DX: I48.91 Unspecified atrial fibrillation (principal); E78.00 Pure hypercholesterolemia, unspecified; E78.5 Hyperlipidemia, unspecified; F10.20 Alcohol dependence, uncomplicated; F32.9 Major depressive disorder, single episode, unspecified; F41.9 Anxiety disorder, unspecified; G47.33 Obstructive sleep apnea (adult) (pediatric); I10 Essential (primary) hypertension; Z82.49 Family history of ischemic heart disease and other diseases of the circulatory system; R42 Dizziness and giddiness
CPT/HCPCS: 36415; 71010; 80048; 80061; 80076; 83690; 83880; 84443; 84484; 85027; 93005; 93306; 96365; 96366; 96375; 96376; 99285; G0378; G0481; J1160; J3490; G0379

== ENCOUNTER → 2018-05-19 | Outpatient (CLI) | payer BC ==
[2018-05-19 07:57] LABS: ALK PHOS 82 U/L (46-116); ALT (SGPT) 27 U/L (16-63); ANION GAP 6 (6-14); AST (SGOT) 20 U/L (15-37); BLOOD UREA NITROGEN 22 mg/dL (8-26); BUN/CREATININE RATIO 16 (6-20); CALCIUM 9.2 mg/dL (8.5-10.1); CARBON DIOXIDE 29 mmol/L (21-32); CHLORIDE 103 mmol/L (98-107); CHOLESTEROL 159 mg/dL (0-200); CREATININE 1.4 mg/dL (0.7-1.3); GFR 50.7; GLUCOSE 104 mg/dL (70-99); HDLC 38 mg/dL (40-60); LDLC 92 mg/dL (0-100); NON-HDL CHOLESTEROL 121 mg/dL (0-129); POTASSIUM 4.1 mmol/L (3.5-5.1); SODIUM 138 mmol/L (136-145); TOTAL BILIRUBIN 0.5 mg/dL (0.2-1.0); TOTAL PROTEIN 7.9 g/dL (6.4-8.2); TRIGLYCERIDES 145 mg/dL (0-150); VLDLC 29 mg/dL (0-40)
[2018-05-19 08:00] LABS: CHOLESTEROL/HDL RATIO 4.2
== END | disposition home or self-care (01) ==
LOC: LAB 07:20
DX: I48.0 Paroxysmal atrial fibrillation (principal)
CPT/HCPCS: 36415; 80053; 80061

== ENCOUNTER → 2018-06-10 | Outpatient (CLI) | payer BC ==
[2018-06-10 07:28] LABS: ANION GAP 9 (6-14); BLOOD UREA NITROGEN 18 mg/dL (8-26); CALCIUM 8.7 mg/dL (8.5-10.1); CARBON DIOXIDE 28 mmol/L (21-32); CHLORIDE 103 mmol/L (98-107); CREATININE 1.3 mg/dL (0.7-1.3); GFR 55.2; GLUCOSE 93 mg/dL (70-99); POTASSIUM 4.4 mmol/L (3.5-5.1); SODIUM 140 mmol/L (136-145)
== END | disposition home or self-care (01) ==
LOC: LAB 07:07
DX: Z51.81 Encounter for therapeutic drug level monitoring (principal); I10 Essential (primary) hypertension; E78.5 Hyperlipidemia, unspecified; E78.00 Pure hypercholesterolemia, unspecified; Z87.891 Personal history of nicotine dependence
CPT/HCPCS: 36415; 80048

== ENCOUNTER → 2018-10-08 | Outpatient (CLI) | payer BC ==
[2017-05-28 14:50] VITALS: BP 120/75
[~2018-10-08] MED LIST changes: +CHOL10003 PO; +OLME20TA17 PO; -OLME20TA19 PO; +VENL75CA6 PO
[2018-10-08 07:33] LABS: HEMATOCRIT 40.2 % (39.0-53.0)
[2018-10-08 07:35] LABS: BILIRUBIN,URINE NEGATIVE (NEG); CLARITY,URINE CLEAR; COLOR,URINE YELLOW; NITRITE,URINE NEGATIVE (NEG); PH,URINE 5.5; PROTEIN,URINE NEGATIVE (NEG-TRACE); UROBILINOGEN,URINE 0.2 mg/dL (0.2 mg/dL)
[2018-10-08 07:50] LABS: ALBUMIN 3.9 g/dL (3.4-5.0); CALCIUM 9.5 mg/dL (8.5-10.1); CREATININE 1.4 mg/dL (0.7-1.3); GFR 50.7; PHOSPHORUS 3.3 mg/dL (2.6-4.7); POTASSIUM 4.6 mmol/L (3.5-5.1)
[2018-10-08 07:56] LABS: BACTERIA,URINE 0 /HPF (0-FEW); RBC,URINE 0 /HPF (0-2); SQUAMOUS EPITHELIAL CELL,UR FEW /LPF; WBC,URINE 0 /HPF (0-4)
[2018-10-08 12:18] LABS: CREAT RD UR 73.1 mg/dL (Not Estab.); MICRO CREAT RATIO 27.2 mg/g creat (0.0-30.0); MICROALB RD UR 19.9 ug/mL (Not Estab.); UR PROTEIN RD 8.3 mg/dL (Not Estab.)
[2018-10-08 15:32] LABS: CALCIUM PTH 9.4 mg/dL (8.6-10.2); CREATININE PTH 1.32 mg/dL (0.76-1.27); PHOSPHORUS PTH 3.2 mg/dL (2.5-4.5); PTH INTACT 35 pg/mL (15-65)
== END | disposition home or self-care (01) ==
LOC: LAB 07:10
PROVIDERS: ATTEND Internal Medicine Nephrology
DX: I12.9 Hypertensive chronic kidney disease with stage 1 through stage 4 chronic kidney disease, or unspecified chronic kidney disease (principal); N18.3 Chronic kidney disease, stage 3 (moderate); I48.2 Chronic atrial fibrillation; Z68.31 Body mass index [BMI] 31.0-31.9, adult
CPT/HCPCS: 36415; 80069; 81001; 82043; 82306; 82570; 83735; 83970; 84156; 85014; 85018

== ENCOUNTER → 2018-10-23 | Outpatient (CLI) | payer BC ==
[2017-05-28 14:50] VITALS: BP 120/75
--- NOTE | 2018-10-23 17:03 | RAD ---
Renal ultrasound, 10/23/2018: HISTORY: Chronic kidney disease The right kidney measures 12.9 cm in length while the left kidney measures 12.8 cm. There is no evidence of hydronephrosis. A 2.2 cm simple cyst is seen in the upper pole of the right kidney. No left renal mass is seen. The renal parenchymal echogenicity is otherwise unremarkable. Limited views of the partially filled urinary bladder are unremarkable. IMPRESSION: 1. Small right renal cyst. 2. No other significant renal abnormality is detected. Electronically signed by: Yakov Cox MD (10/23/2018 4:59 PM) [facility]
== END | disposition home or self-care (01) ==
LOC: US 16:06
DX: N28.1 Cyst of kidney, acquired (principal); I12.9 Hypertensive chronic kidney disease with stage 1 through stage 4 chronic kidney disease, or unspecified chronic kidney disease; N18.3 Chronic kidney disease, stage 3 (moderate)
CPT/HCPCS: 76770

== ENCOUNTER → 2019-03-24 | Outpatient (CLI) | payer BC ==
[2017-05-28 14:50] VITALS: BP 120/75
[2019-03-24 12:55] LABS: ALBUMIN 4.2 g/dL (3.4-5.0); CALCIUM 9.1 mg/dL (8.5-10.1); CREATININE 1.5 mg/dL (0.7-1.3); GFR 46.8; POTASSIUM 4.3 mmol/L (3.5-5.1)
[2019-03-24 12:56] LABS: PHOSPHORUS 3.8 mg/dL (2.6-4.7)
== END | disposition home or self-care (01) ==
LOC: LAB 12:26
PROVIDERS: ATTEND Internal Medicine Nephrology
DX: I12.9 Hypertensive chronic kidney disease with stage 1 through stage 4 chronic kidney disease, or unspecified chronic kidney disease (principal); N18.3 Chronic kidney disease, stage 3 (moderate); I48.2 Chronic atrial fibrillation; Z68.31 Body mass index [BMI] 31.0-31.9, adult
CPT/HCPCS: 36415; 80069

== ENCOUNTER → 2019-05-21 | Outpatient (CLI) | payer BC ==
[2017-05-28 14:50] VITALS: BP 120/75
[2019-05-21 09:46] LABS: ALBUMIN 4.1 g/dL (3.4-5.0); ALBUMIN/GLOBULIN RATIO 1.2 (1.0-1.7); CALCIUM 9.1 mg/dL (8.5-10.1); CREATININE 1.5 mg/dL (0.7-1.3); GFR 46.7; MAGNESIUM 2.1 mg/dL (1.8-2.4); POTASSIUM 4.6 mmol/L (3.5-5.1); TOTAL BILIRUBIN 0.3 mg/dL (0.2-1.0); TOTAL PROTEIN 7.6 g/dL (6.4-8.2)
== END | disposition home or self-care (01) ==
LOC: LAB 09:10
PROVIDERS: ATTEND Internal Medicine Cardiovascular Disease
DX: I48.0 Paroxysmal atrial fibrillation (principal)
CPT/HCPCS: 36415; 80053; 83735

== ENCOUNTER → 2019-06-28 | Outpatient (CLI) | payer BC ==
[2017-05-28 14:50] VITALS: BP 120/75
--- NOTE | 2019-06-28 11:24 | CARD ---
MR#: [id number] Date of Study: 06/28/2019 Ordering Physician: ROMEO ROSALES, Referring Physician: ROMEO ROSALES, Tech: Amparo Wise [facility] APPROVED REPORT EXAM: Two-dimensional and M-mode echocardiogram with Doppler and color Doppler. Other Information Quality : Good Rhythm : Atrial Fibrillation INDICATION Paroxysmal Atrial Fibrillation 2D DIMENSIONS RVDd3.1 (2.9-3.5cm)Left Atrium(2D)3.2 (1.6-4.0cm) IVSd1.0 (0.7-1.1cm)Aortic Root(2D)3.2 (2.0-3.7cm) LVDd5.1 (3.9-5.9cm)LVOT Diameter2.1 (1.8-2.4cm) PWd0.7 (0.7-1.1cm)LVDs2.7 (2.5-4.0cm) FS (%) 30.0 %SV94.4 ml LVEF(%)60.0 (>50%) Aortic Valve AoV Peak Jerome.219.9cm/sAoV VTI43.3cm AO Peak GR.19.3mmHgLVOT Peak Jerome.159.8cm/s AO Mean GR.10mmHgAVA (VMAX)2.59cm2 DAVE (VTI)2.60cm2 Mitral Valve MV E Hwemeqbn03.6cm/sMV DECEL BCDO261ca MV A Yaajvllt817.7cm/sE/A Ratio0.6 Tricuspid Valve TR P. Nrdgxusd769wc/sRAP THRDENWS4nuPp TR Peak Gr.62qwAlQBVM53rdFp Pulmonary Vein S1 Vxinpcvb07.9cm/sD2 Ynvofzrw14.1cm/s LEFT VENTRICLE The left ventricle is normal size. There is normal left ventricular wall thickness. The left ventricu lar systolic function is normal. The Ejection Fraction is 55-60%. There is normal LV segmental wall m otion. Transmitral Doppler flow pattern is Grade I-abnormal relaxation pattern. RIGHT VENTRICLE The right ventricle is normal size. The right ventricular systolic function is normal. ATRIA The left atrium size is normal. The right atrium size is normal. The interatrial septum is intact wit h no evidence for an atrial septal defect or patent foramen ovale as noted on 2-D or Doppler imaging. AORTIC VALVE The aortic valve is calcified but opens well. Doppler and Color Flow revealed no significant aortic r egurgitation. There is no significant aortic valvular stenosis. MITRAL VALVE The mitral valve is normal in structure and function. There is no evidence of mitral valve prolapse. There is no mitral valve stenosis. Doppler and Color-flow revealed trace mitral regurgitation. TRICUSPID VALVE The tricuspid valve is normal in structure and function. Doppler and Color Flow revealed trace tricus pid regurgitation. The PA pressure was estimated at 28 mmHg. There is no tricuspid valve stenosis. PULMONIC VALVE The pulmonic valve is not well visualized. Doppler and Color Flow revealed trace pulmonic valvular re gurgitation. There is no pulmonic valvular stenosis. GREAT VESSELS The aortic root is normal in size. The ascending aorta is moderately dilated at 4.0 cm. The IVC is no rmal in size and collapses >50% with inspiration. PERICARDIAL EFFUSION There is no evidence of significant pericardial effusion. Critical Notification Critical Value: No <Conclusion> The left ventricular systolic function is normal. The Ejection Fraction is 55-60%. There is normal LV segmental wall motion. Transmitral Doppler flow pattern is Grade I-abnormal relaxation pattern. Trace mitral regurgitation. Trace tricuspid regurgitation. The PA pressure was estimated at 28 mmHg. The ascending aorta is moderately dilated at 4.0 cm. There is no evidence of significant pericardial effusion. Signed by : Bishop Barbour, Electronically Approved : 06/28/2019 11:23:02
== END | disposition home or self-care (01) ==
LOC: ECHO 10:00
PROVIDERS: ATTEND Internal Medicine Cardiovascular Disease
DX: I35.8 Other nonrheumatic aortic valve disorders (principal); I48.0 Paroxysmal atrial fibrillation
CPT/HCPCS: 93306

== ENCOUNTER → 2019-07-27 | Outpatient (CLI) | payer BC ==
[2017-05-28 14:50] VITALS: BP 120/75
[2019-07-27 06:40] LABS: ALBUMIN 3.8 g/dL (3.4-5.0); CALCIUM 8.8 mg/dL (8.5-10.1); CREATININE 1.5 mg/dL (0.7-1.3); GFR 46.7; PHOSPHORUS 3.2 mg/dL (2.6-4.7); POTASSIUM 4.4 mmol/L (3.5-5.1)
== END | disposition home or self-care (01) ==
LOC: LAB 05:59
PROVIDERS: ATTEND Internal Medicine Nephrology
DX: N18.3 Chronic kidney disease, stage 3 (moderate) (principal); Z68.31 Body mass index [BMI] 31.0-31.9, adult
CPT/HCPCS: 36415; 80069

== ENCOUNTER 2019-07-29 13:07 | Emergency (ER) | payer BC, MEDICARE ==
[~2019-07-29] VITALS: Ht 182.9 cm; Wt 99.8 kg
[2019-07-29 13:49] LABS: BASO # 0.1 x10^3/uL (0.0-0.2); BASO % 1 % (0-3); EOS % 0 % (0-3); HEMATOCRIT 39.5 % (39.0-53.0); HEMOGLOBIN 13.9 g/dL (13.0-17.5); LYMPH # 1.4 x10^3/uL (1.0-4.8); LYMPH % 22 % (24-48); MEAN CORPUSCULAR HEMOGLOBIN 30 pg (25-35); MEAN CORPUSCULAR HGB CONC 35 g/dL (31-37); MEAN CORPUSCULAR VOLUME 85 fL (79-100); MONO # 0.7 x10^3/uL (0.0-1.1); MONO % 11 % (0-9); NEUT % 65 % (31-73); PLATELET COUNT 215 x10^3/uL (140-400); RED BLOOD COUNT 4.64 x10^6/uL (4.30-5.70); RED CELL DISTRIBUTION WIDTH 13.2 % (11.5-14.5); WHITE BLOOD COUNT 6.2 x10^3/uL (4.0-11.0)
--- NOTE | 2019-07-29 13:57 | RAD ---
EXAM: CHEST 1 VIEW History: Shortness of breath COMPARISON: 05/27/2017 TECHNIQUE: Single portable radiograph of the chest FINDINGS: The cardiac silhouette is unremarkable. The lungs are clear bilaterally. The costophrenic sulci are clear and well demarcated. IMPRESSION: No radiographic evidence of an acute cardiopulmonary process. Electronically signed by: Ray Grant MD (07/29/2019 1:54 PM) [facility]
[2019-07-29 14:02] LABS: PROTHROMBIN TIME PATIENT 13.3 SEC (11.7-14.0)
[2019-07-29 14:03] LABS: CALCIUM 9.2 mg/dL (8.5-10.1); CREATININE 1.4 mg/dL (0.7-1.3); GFR 50.5; POTASSIUM 4.2 mmol/L (3.5-5.1)
[2019-07-29 14:08] LABS: ALBUMIN 4.2 g/dL (3.4-5.0); ALBUMIN/GLOBULIN RATIO 1.1 (1.0-1.7); MAGNESIUM 1.8 mg/dL (1.8-2.4); TOTAL BILIRUBIN 0.4 mg/dL (0.2-1.0); TOTAL PROTEIN 7.9 g/dL (6.4-8.2)
[2019-07-29 14:10] LABS: D-DIMER 0.28 ug/mlFEU (0.00-0.50)
--- NOTE | 2019-07-29 14:16 | EKG ---
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
[2019-07-29 14:20] VITALS: BP 124/75
--- NOTE | 2019-07-29 14:38 | PHYS DOC ---
Past Medical History Past Medical History: A-Fib, Anxiety, Depression, High Cholesterol, Hypertension Past Surgical History: Knee Replacement Additional Past Surgical Histo: bilat knee Alcohol Use: Heavy Additional Information: 2-3 days a week Drug Use: None Adult General Chief Complaint Chief Complaint: shortness of breath HPI HPI Patient is a 69 year old male with history of atrial fibrillation who presents with complaining of of hard time to breath. Patient states he has had hard time breathing since this morning without cough, chest pain, weakness, focal neuro deficit, fever and chills. Patient states he has had history of atrial fibrillation and tried to go to see his brown sourer but was advised come to ER and saw his brown sourer in the hospital who checked his pulse and stated he had irregular heartbeat and needs to come to ER. Patient denies palpitation. Review of Systems Review of Systems Constitutional: Denies fever or chills [] Eyes: Denies change in visual acuity, redness, or eye pain [] HENT: Denies nasal congestion or sore throat [] Respiratory: Denies cough, reports shortness of breath [] Cardiovascular: No additional information not addressed in HPI [] GI: Denies abdominal pain, nausea, vomiting, bloody stools or diarrhea [] : Denies dysuria or hematuria [] Musculoskeletal: Denies back pain or joint pain [] Integument: Denies rash or skin lesions [] Neurologic: Denies headache, focal weakness or sensory changes [] Endocrine: Denies polyuria or polydipsia [] All other systems were reviewed and found to be within normal limits, except as documented in this note. Allergies Allergies Allergies Coded Allergies Type Severity Reaction Last Updated Verified fentanyl Allergy Severe 05/27/17 Yes Physical Exam Physical Exam Constitutional: Well developed, well nourished, no distress, non-toxic appearance. [] HENT: Normocephalic, atraumatic. Eyes: PERRLA, EOMI, conjunctiva normal, no discharge. [] Neck: Normal range of motion, no tenderness, supple, no stridor. [] Cardiovascular:Heart rate regular rhythm, no murmur [] Lungs & Thorax: Bilateral breath sounds clear to auscultation [] Abdomen: Bowel sounds normal, soft, no tenderness, no masses, no pulsatile masses. [] Skin: Warm, dry, no erythema, no rash. [] Back: No tenderness, no CVA tenderness. [] Extremities: No tenderness, no cyanosis, no clubbing, ROM intact, no edema. [] Neurologic: Alert and oriented X 3, no focal deficits noted. [] Psychologic: Affect normal, judgement normal, mood normal. [] Current Patient Data Vital Signs Vital Signs Date Time Temp Pulse Resp B/P (MAP) Pulse Ox O2 Delivery O2 Flow Rate FiO2 07/29/19 13:10 98.2 85 18 128/70 (89) 97 Room Air 98.2 Lab Values Laboratory Tests Test 07/29/19 13:26 White Blood Count 6.2 x10^3/uL (4.0-11.0) Red Blood Count 4.64 x10^6/uL (4.30-5.70) Hemoglobin 13.9 g/dL (13.0-17.5) Hematocrit 39.5 % (39.0-53.0) Mean Corpuscular Volume 85 fL (79-100) Mean Corpuscular Hemoglobin 30 pg (25-35) Mean Corpuscular Hemoglobin Concent 35 g/dL (31-37) Red Cell Distribution Width 13.2 % (11.5-14.5) Platelet Count 215 x10^3/uL (140-400) Neutrophils (%) (Auto) 65 % (31-73) Lymphocytes (%) (Auto) 22 % (24-48) L Monocytes (%) (Auto) 11 % (0-9) H Eosinophils (%) (Auto) 0 % (0-3) Basophils (%) (Auto) 1 % (0-3) Neutrophils # (Auto) 4.0 x10^3/uL (1.8-7.7) Lymphocytes # (Auto) 1.4 x10^3/uL (1.0-4.8) Monocytes # (Auto) 0.7 x10^3/uL (0.0-1.1) Eosinophils # (Auto) 0.0 x10^3/uL (0.0-0.7) Basophils # (Auto) 0.1 x10^3/uL (0.0-0.2) Prothrombin Time 13.3 SEC (11.7-14.0) Prothrombin Time INR 1.0 (0.8-1.1) D-Dimer (Nneka) 0.28 ug/mlFEU (0.00-0.50) Sodium Level 139 mmol/L (136-145) Potassium Level 4.2 mmol/L (3.5-5.1) Chloride Level 103 mmol/L (98-107) Carbon Dioxide Level 26 mmol/L (21-32) Anion Gap 10 (6-14) Blood Urea Nitrogen 22 mg/dL (8-26) Creatinine 1.4 mg/dL (0.7-1.3) H Estimated GFR (Cockcroft-Gault) 50.5 BUN/Creatinine Ratio 16 (6-20) Glucose Level 107 mg/dL (70-99) H Calcium Level 9.2 mg/dL (8.5-10.1) Magnesium Level 1.8 mg/dL (1.8-2.4) Total Bilirubin 0.4 mg/dL (0.2-1.0) Aspartate Amino Transferase (AST) 17 U/L (15-37) Alanine Aminotransferase (ALT) 23 U/L (16-63) Alkaline Phosphatase 79 U/L (46-116) Creatine Kinase 121 U/L (39-308) Troponin I Quantitative < 0.017 ng/mL (0.000-0.055) BJ-Fms-T-Type Natriuretic Peptide 18 pg/mL (0-124) Total Protein 7.9 g/dL (6.4-8.2) Albumin 4.2 g/dL (3.4-5.0) Albumin/Globulin Ratio 1.1 (1.0-1.7) Lipase 130 U/L (73-393) Laboratory Tests 07/29/19 13:26 Laboratory Tests 07/29/19 13:26 EKG EKG EKG interpreted by me. EKG at 1350 showed normal sinus rhythm at rate of 84, normal OH and QT intervals, no acute ST and T-wave elevation. Radiology/Procedures Radiology/Procedures [][facility] [address] [place] [address] IMAGING REPORT Signed PATIENT: DEE DEE REINOSO ACCOUNT: [id number] : 1950 LOCATION: ER AGE: 69 SEX: M EXAM STATUS: REG ER ORD. PHYSICIAN: ALFREDO OLIVA MD REASON: shortness of breath PROCEDURE: PORTABLE CHEST 1V EXAM: CHEST 1 VIEW History: Shortness of breath COMPARISON: 05/27/2017 TECHNIQUE: Single portable radiograph of the chest FINDINGS: The cardiac silhouette is unremarkable. The lungs are clear bilaterally. The costophrenic sulci are clear and well demarcated. IMPRESSION: No radiographic evidence of an acute cardiopulmonary process. Electronically signed by: Ray Grant MD (07/29/2019 1:54 PM) [place] [id number] DICTATED and SIGNED BY: RAY GRANT MD DATE: 07/29/19 1354 Course & Med Decision Making Course & Med Decision Making Pertinent Labs and Imaging studies reviewed. (See chart for details) Evaluation of patient in ER showed 69-year-old male patient with history of atrial flutter patient presented with complaining of shortness of breath. Patient had O2 sat of 98% at room air with sinus rhythm area patient had negative d-dimer and cardiac enzyme and labs and felt better after information was give about normal evaluation and feels comfortable to go home. Dragon Disclaimer Dragon Disclaimer This electronic medical record was generated, in whole or in part, using a voice recognition dictation system. Departure Departure Impression: Primary Impression: Shortness of breath Additional Impression: Anxiety about health Disposition: 01 HOME, SELF-CARE (at 1436) Condition: IMPROVED Referrals: VENECIA WILKINSON (PCP) Patient Instructions: Shortness of Breath Additional Instructions: Continue current medication Follow-up with your primary care physician in 3-5 days Return to ER if not getting better Problem Qualifiers ALFREDO OLIVA MD Jul 29, 2019 14:38
== END 2019-07-29 14:40 | disposition home or self-care (01) ==
LOC: ER 13:07
DX: R06.02 Shortness of breath (principal); F41.9 Anxiety disorder, unspecified; I48.91 Unspecified atrial fibrillation; E78.00 Pure hypercholesterolemia, unspecified; I10 Essential (primary) hypertension; F10.20 Alcohol dependence, uncomplicated; Y90.9 Presence of alcohol in blood, level not specified; Z88.4 Allergy status to anesthetic agent
CPT/HCPCS: 36415; 71045; 80053; 82550; 83690; 83735; 83880; 84484; 85025; 85379; 85610; 93005; 99285-25

== ENCOUNTER → 2019-12-03 | Outpatient (CLI) | payer BC ==
--- NOTE | 2019-12-03 09:11 | RAD ---
Examination: CT CHEST WO CONTRAST History: Ascending aortic dilatation Comparison/Correlation: 07/29/2019 Portable Chest X-ray Exam Findings: Axial images of chest were obtained without contrast. Sagittal and coronal reformatted images were provided. Moderate coronary arterial calcification noted. Ascending aortic ectasia with diameter of up to 4.1 cm present. Descending thoracic aortic diameter of 2.7 cm present. Bullae are cavitary lesions involving the right lower lung field are present. One of these on axial image 41 and coronal image 29 has a diameter of up to 1.3 cm. More inferiorly, there is a 1.5 cm diameter cavitary lesion or bulla with partially calcified nodule within it measuring 0.35 cm diameter. No suspicious solid pulmonary lesion. Tracheobronchial tree is unremarkable. Few calcified granulomas involve the lung prasad. No suspicious consolidation. No pleural or pericardial effusion. A few small calculi present within the gallbladder near the neck. Left renal superior pole cyst is present. Complex right renal superior pole structure posteriorly is only partially included for purposes of this exam. It measures up to 3.1 cm x 2.6 cm. Also enhance of 28 noted. Impression: Ascending thoracic aortic ectasia. No aneurysmal dilatation. Cholelithiasis. Complex right renal superior pole cyst or mass. While this appears to correspond with a cyst reported on renal ultrasound 10/23/2018, it is larger in size and not of simple cystic density. Further evaluation with CT of the kidneys without and with contrast or MRI of the kidneys without and with contrast is recommended for more definitive assessment as neoplastic etiology is not excluded on basis of this exam. Discussed with Dr. Reinoso on 12/03/2019 at 9:08 AM. PQRS Compliance Statement: One or more of the following individualized dose reduction techniques were utilized for this examination: 1. Automated exposure control 2. Adjustment of the mA and/or kV according to patient size 3. Use of iterative reconstruction technique Electronically signed by: Jerson Aguilar MD (12/03/2019 9:08 AM) [facility]
== END | disposition home or self-care (01) ==
LOC: CT 07:17
PROVIDERS: ATTEND Internal Medicine Cardiovascular Disease
DX: I71.2 Thoracic aortic aneurysm, without rupture (principal); K80.20 Calculus of gallbladder without cholecystitis without obstruction; N28.1 Cyst of kidney, acquired; I25.10 Atherosclerotic heart disease of native coronary artery without angina pectoris
CPT/HCPCS: 71250

== ENCOUNTER → 2019-12-16 | Outpatient (CLI) | payer BC ==
--- NOTE | 2019-12-16 15:41 | RAD ---
Complete Renal ultrasound: History: Enlarging renal cyst Comparison: October 23, 2018 Realtime grayscale sonographic images of the kidney, ureters and bladder were performed. Right kidney: There is old lateral mid right renal cyst that measures 21 x 17 x 20 mm. This compares with 22 x 20 x 25 mm on the previous exam. No renal calculus or hydronephrosis. Left kidney: There is a heterogeneous 20 mm lesion seen in the upper renal cortex suspicious for a renal mass medially. Bladder: unremarkable Impression: 1. Unremarkable stable right renal cyst 2. There appears to be a medial upper pole left renal mass not well characterized by ultrasound and dedicated CT or MRI with and without contrast is recommended for more complete characterization. Electronically signed by: Manuelito Wolff MD (12/16/2019 3:38 PM) [facility]
== END | disposition home or self-care (01) ==
LOC: US 08:58
PROVIDERS: ATTEND Internal Medicine Cardiovascular Disease
DX: N28.1 Cyst of kidney, acquired (principal)
CPT/HCPCS: 76770

== ENCOUNTER → 2019-12-21 | Outpatient (CLI) | payer BC ==
[~2019-12-21] MED LIST changes: +IOHEXOL 300 MG/ML 100ML VIAL. IV ONE
[2019-12-21 08:29] LABS: CALCIUM 9.2 mg/dL (8.5-10.1); CREATININE 1.3 mg/dL (0.7-1.3); GFR 55.1; POTASSIUM 4.5 mmol/L (3.5-5.1)
--- NOTE | 2019-12-21 10:45 | RAD ---
EXAM: CT abdomen with and without contrast. HISTORY: Left renal mass. TECHNIQUE: CT of the abdomen was performed before and after the intravenous administration of 60 mL Omnipaque 300. One or more of the following individualized dose reduction techniques were utilized for this examination: 1. Automated exposure control. 2. Adjustment of the mA and/or kV according to patient size. 3. Use of iterative reconstruction technique. COMPARISON: 12/03/2019. FINDINGS: Lung windows demonstrate a thin-walled cavitary lesion in the right lower lobe measuring 11 x 9 mm. A nodular focus along its inferior periphery may be uncleared secretions. This appears to communicate with a bronchus and may represent a partially aerated bronchocele. There is mild dependent atelectasis. Bone windows reveal no suspicious lesions. Atherosclerotic calcifications are noted along the right coronary artery. An enhancing mass at the right renal upper pole posteriorly measures 3.1 x 2.7 cm and is concerning for renal cell carcinoma. There is no extension beyond the Gerota's fascia. There is no renal vein invasion. There are no pathologically enlarged para-aortic lymph nodes. Small nonenhancing masses elsewhere in both kidneys are consistent with benign cysts and measure up to 2.2 x 2.0 cm in the right lateral interpolar region. Gallstones are noted. The pancreas, adrenal glands and spleen are unremarkable. A cyst in hepatic segment 2 appears benign and measures 19 mm. IMPRESSION: 1. 3.1 cm enhancing mass at the right renal upper pole concerning for renal cell carcinoma. Ongoing management is recommended. 2. An 11 mm cavitary nodule in the right lower lobe may represent a small aerated bronchocele. Follow-up is suggested in 3-6 months if long-term stability is not already known. 3. Cholelithiasis. Electronically signed by: Silvio Wood MD (12/21/2019 10:41 AM) [facility]
== END | disposition home or self-care (01) ==
LOC: CT 07:51
PROVIDERS: ATTEND Internal Medicine Cardiovascular Disease
DX: K80.20 Calculus of gallbladder without cholecystitis without obstruction (principal); N28.89 Other specified disorders of kidney and ureter; R91.1 Solitary pulmonary nodule; K76.89 Other specified diseases of liver; I25.10 Atherosclerotic heart disease of native coronary artery without angina pectoris; J98.11 Atelectasis
CPT/HCPCS: 36415; 74170; 80048; Q9967

== ENCOUNTER → 2021-03-12 | Outpatient (CLI) | payer BC ==
[~2021-03-12] MED LIST changes: -IOHEXOL 300 MG/ML 100ML VIAL. IV ONE
--- NOTE | 2021-03-12 09:07 | CARD ---
MR#: [id number] Date of Study: 03/12/2021 Ordering Physician: NADER ROSALES, Referring Physician: NADER ROSALES, Tech: Melissa Turpin [facility] APPROVED REPORT EXAM: Two-dimensional and M-mode echocardiogram with Doppler and color Doppler. Other Information Quality : GoodHR: 55bpm Rhythm : NSR INDICATION Hypertension/HCVD RISK FACTORS Hypertension Hyperlipidemia 2D DIMENSIONS RVDd4.1 (2.9-3.5cm)Left Atrium(2D)3.3 (1.6-4.0cm) IVSd0.9 (0.7-1.1cm)Aortic Root(2D)3.5 (2.0-3.7cm) LVDd4.6 (3.9-5.9cm)LVOT Diameter2.1 (1.8-2.4cm) PWd0.9 (0.7-1.1cm)LVDs1.8 (2.5-4.0cm) FS (%) 59.8 %SV85.6 ml LVEF(%)89.3 (>50%) Aortic Valve AoV Peak Jerome.185.2cm/sAoV VTI35.7cm AO Peak GR.13.7mmHgLVOT Peak Jerome.143.7cm/s AO Mean GR.6mmHgAVA (VMAX)2.62cm2 Mitral Valve MV E Fgskkdze58.4cm/sMV DECEL [id number] MV A Uzpnpfxj08.0cm/sE/A Ratio1.0 Pulmonary Valve PV Peak Plyprhia311.2cm/s Tricuspid Valve TR P. Gyixutts768ef/sTR Peak Gr.24mmHg Pulmonary Vein S1 Oeevluxc36.0cm/sD2 Agqdoutx92.2cm/s PVa strqmmya78bdek LEFT VENTRICLE The left ventricle is normal size. There is normal left ventricular wall thickness. The left ventricu lar systolic function is normal and the ejection fraction is within normal range. Estimated ejection fraction 55-60%. There is normal LV segmental wall motion. The left ventricular diastolic function an d filling is normal for age. RIGHT VENTRICLE The right ventricle is normal size. There is normal right ventricular wall thickness. The right ventr icular systolic function is normal. ATRIA The left atrium size is normal. The right atrium size is normal. The interatrial septum is intact wit h no evidence for an atrial septal defect or patent foramen ovale as noted on 2-D or Doppler imaging. AORTIC VALVE The aortic valve is normal in structure and function. Doppler and Color Flow revealed trace aortic re gurgitation. There is no significant aortic valvular stenosis. MITRAL VALVE The mitral valve is normal in structure and function. There is no evidence of mitral valve prolapse. There is no mitral valve stenosis. Doppler and Color-flow revealed trace mitral regurgitation. TRICUSPID VALVE The tricuspid valve is normal in structure and function. Doppler and Color Flow revealed mild tricusp id regurgitation. Estimated PAP 27 mmHg. There is no tricuspid valve stenosis. PULMONIC VALVE The pulmonary valve is normal in structure and function. Doppler and Color Flow revealed trace pulmon ic valvular regurgitation. There is no pulmonic valvular stenosis. GREAT VESSELS The aortic root is normal in size. The ascending aorta is mildly dilated at 4.2 cm The IVC is normal in size and collapses >50% with inspiration. PERICARDIAL EFFUSION There is no evidence of significant pericardial effusion. Critical Notification Critical Value: No <Conclusion> The left ventricular systolic function is normal and the ejection fraction is within normal range. E stimated ejection fraction 55-60%. There is normal LV segmental wall motion. The ascending aorta is mildly dilated at 4.2 cm. Signed by : Nader Rosales, Electronically Approved : 03/12/2021 09:06:53
== END ==
LOC: ECHO 07:17
PROVIDERS: ATTEND Internal Medicine Cardiovascular Disease
DX: I07.1 Rheumatic tricuspid insufficiency (principal); I48.0 Paroxysmal atrial fibrillation
CPT/HCPCS: 93306

== ENCOUNTER → 2021-10-16 | Outpatient (CLI) | payer BC ==
[2021-10-16 07:59] LABS: HEMATOCRIT 40.5 % (39.0-53.0); HEMOGLOBIN 13.4 g/dL (13.0-17.5)
[2021-10-16 08:06] LABS: CREATININE,RANDOM URINE 76.3 mg/dL (Not Establ.)
[2021-10-16 08:27] LABS: ALBUMIN 3.9 g/dL (3.4-5.0); CREATININE 1.4 mg/dL (0.7-1.3); GFR 50.2; POTASSIUM 4.6 mmol/L (3.5-5.1)
[2021-10-17 14:12] LABS: CALCIUM PTH 9.7 mg/dL (8.6-10.2); CREATININE PTH 1.43 mg/dL (0.76-1.27); PHOSPHORUS PTH 3.8 mg/dL (2.8-4.1); PTH INTACT 38 pg/mL (15-65)
== END ==
LOC: LAB 07:11
PROVIDERS: ATTEND Internal Medicine Nephrology
DX: I12.9 Hypertensive chronic kidney disease with stage 1 through stage 4 chronic kidney disease, or unspecified chronic kidney disease (principal); N18.31 Chronic kidney disease, stage 3a; N28.1 Cyst of kidney, acquired; N40.0 Benign prostatic hyperplasia without lower urinary tract symptoms; I48.20 Chronic atrial fibrillation, unspecified
CPT/HCPCS: 36415; 80069; 82570; 83970; 84156; 85014; 85018

== ENCOUNTER → 2022-04-09 | Outpatient (CLI) | payer BC, MEDICARE ==
[~2022-04-09] MED LIST changes: -VENL150C PO; +VENL150C3 PO
[2022-04-09 08:08] LABS: ALBUMIN 3.5 g/dL (3.4-5.0); CALCIUM 8.8 mg/dL (8.5-10.1); CREATININE 1.5 mg/dL (0.7-1.3); GFR 46.4; PHOSPHORUS 2.9 mg/dL (2.6-4.7); POTASSIUM 4.5 mmol/L (3.5-5.1)
[2022-04-09 22:08] LABS: UR PROTEIN RD 7.7 mg/dL (Not Estab.)
== END ==
LOC: LAB 06:54
PROVIDERS: ATTEND Nurse Practitioner Adult Health
DX: I12.9 Hypertensive chronic kidney disease with stage 1 through stage 4 chronic kidney disease, or unspecified chronic kidney disease (principal); N18.31 Chronic kidney disease, stage 3a; N28.1 Cyst of kidney, acquired; I48.20 Chronic atrial fibrillation, unspecified; N40.0 Benign prostatic hyperplasia without lower urinary tract symptoms; Z68.29 Body mass index [BMI] 29.0-29.9, adult
CPT/HCPCS: 36415; 80069; 82306; 82570; 84156